=== PATIENT | male | born 1945 | race Caucasian/White ===

== ENCOUNTER 2022-04-07 10:26 | Outpatient (CLI) | payer MEDICARE, BC, SELFPAY ==
--- OUTSIDE RECORDS SUMMARY | 2022-04-07 10:29 | XMS_ITS | Clinical Summary ---
:1945 Author Organization [facility] [place] [address] Care Team Providers Name Role Phone Pcp, No Primary Care Provider Unavailable Allergies Active Allergy Reactions Severity Noted Date Comments Gluten Intolerance-Can't Take Low 05/11/2011 Tegaserod Rash, Nausea And Vomiting, Headache 02/06 Medications Medication Sig Dispensed Refills Start Date End Date Status LUMIGAN 0.01 % INSTILL 1 DROP INTO 0 04/19/2020 Active ophthalmic solution LEFT EYE AT BEDTIME DUREZOL 0.05 % 1 DROP IN SURGICAL 0 12/15/2019 Active ophthalmic emulsion EYE 4 TIMES A DAY STARTING 1 DAY BEFORE SURGERY, CONTINUE UNTIL INSTRUCTED tamsulosin (FLOMAX) Take 1 Capsule (0.4 90 Capsule 3 1 Active 0.4 mg mg) by mouth once capsuleIndications: daily after a meal. Benign prostatic hyperplasia with nocturia Active Problems Problem Noted Date Elevated PSA 11/03/2015 Benign non-nodular prostatic hyperplasia with lower ur inary tract symptoms 11/03/2015 Colon polyp 05/17/2011 Overview: Colonoscopy 05/2011 multiple polyps repea t in 2 years Colonoscopy 05/2013 polyp repeat in 2 yea rs Colonoscopy 06/2015 polyps repeat in 2 ye ars Colonoscopy 09/2017 polyps, repeat in 2 y ears Colonoscopy 11/2019 polyps, repeat in 2 y ears Colonoscopy 02/2022 normal, repeat in 3 years Personal history of malignant neoplasm of rectum, rect osigmoid junction, 02/06/2007 and anus Overview: Colonoscopy 02/2009 polyps repeat in 2 y ears Colonoscopy 02/2022 normal, repeat in 3 years Encounters Date Type Specialty Care Team Description 02/07/2022 Procedure Only Kris Robbins MD P rocedure (colonoscopy) 02/07/2022 Travel 02/01/2022 Telephone Kris Robbins MD Elidia ointment Reminder 01/10/2022 Telephone Kris Robbins MD Oth er from Last 3 Months Immunizations Name Administration Dates Next Due Pneumococcal Poly,23-Valent (Pneumovax) 09/21/2011 Pneumococcal conj 13-Valent (Prevnar 13) 06/25/2014 Td (Age >=7 Years) 03/21/2003, 06/02/1999 Tdap 12/19/2017 Zoster (Shingrix-RZV, recombinant) 02/17/2019, 12/13/2018 Social History Tobacco Use Types Packs/Day Years Used Date Never Smoker 0 Smokeless Tobacco: Never Used Tobacco Cessation: Counseling Given: Yes Alcohol Use Standard Drinks/Week Comments Yes 0 (1 standard drink = 0.6 oz pure alcoho l) Alcoholic Drinks/day: 1 Sex Assigned at Date Recorded Not on file Obstetrics History Last Filed Vital Signs Vital Sign Reading Time Taken Comments Blood Pressure 152/82 08/29/2021 8:11 AM CDT Pulse 62 08/29/2021 8:11 AM CDT Temperature 36.7 ??C (98.1 ??F) 12/31/2017 9:21 AM CDT Respiratory Rate 16 08/29/2021 8:11 AM CDT Oxygen Saturation 100% 08/29/2021 8:11 AM CDT Inhaled Oxygen - - Concentration Weight 79.7 kg (175 lb 12.8 08/29/2021 8:11 AM PT weigh ed with shoes oz) CDT on. Height 167 cm (5' 5.75) 12/13/2015 8:43 AM CDT Body Mass Index 28.59 12/13/2015 8:43 AM CDT Plan of Treatment Health Maintenance Due Date Last Done Comments Depression screening for age 12+ 1957 Hepatitis C screening for age 18-79 1963 Medicare Wellness for age 65+ 2010 BMI (ht and wt on same day) for age 0812/12/2016 12/13/2015, 11/03/2015 18+ COVID-19 vaccine series (4 - Booster 05/03/2021 03/08/2021, 07/17/2020, for Pfizer series) 06/26/2020 Influenza for age 65+ 01/05/2022 Tetanus booster 12/20/2027 12/19/2017, 03/21/2003, 06/02/1999 Pneumococcal series for age 65+ Completed 06/25/2014, 09/04 Tdap Completed 12/19/2017 Zoster (shingles) series for age 50+ Completed 02/17/2019, 12/13/2018 Procedures Procedure Name Priority Date/Time Associated Comments Diagnosis COLONOSCOPY 02/07/2022 9:54 AM Results f or this CDT procedure are i n the results section. COLONOSCOPY SCREENING Routine 02/07/2022 9:40 AM History of co david CDT polyps from Last 3 Months Results COLONOSCOPY (02/07/2022 9:54 AM CDT) Specimen (Source) Anatomical Collection Method Collection Time Re ceived Time Location / / Volume Laterality 02/07/2022 9:54 AM CDT Narrative This result has an attachment that is no t available. Transcriptions Kris Robbins MD - 02/07/2022 10 :55 AM CDT Patient Name: Jet Ellisfreddy re Date: 02/07/2022 Gender: Male Date of : 1945 Admit Type: Outpatient Procedure: Colonoscopy Proceduralist: Kris Robbins MD , Angeline Mock RN (Nurse), Loly Zhou (Nurse) Referring MD: Kris Robbins Indications/Pre-Op Diagnosis: High risk colon cancer surveillance: Personal history of multiple (3 or more) adenoma s, High risk colon cancer surveillance: Bradley ernst history of colon cancer, Last colonosco py: November 2019 Medications: Fentanyl 100 micrograms IV, Midazolam 2 mg IV, The level of sedation administered was moderate Procedure Description: The patient had risks, benefits and alt ernatives explained to and gave informed consent. The patient had a sta ble cardiopulmonary status and judged an adequate candidate for consci ous sedation. The Colonoscope was passed through the anus and advanced to the cecum, identified by appendiceal orifice and i leocecal valve. The colonoscopy was performed without difficulty. The p atient tolerated the procedure well. The quality of the bowel preparat ion was good. The ileocecal valve, appendiceal orifice, and rectum were photographed. Complications: No immediate complication s. Estimated Blood Loss & Specimen: Estimated blood loss: none. Specimen co llected - None Findings: The perianal and digital rectal examina tions were normal. There was evidence of a prior end-to-en d colo-rectal anastomosis in the rectum. This was patent and was charact erized by healthy appearing mucosa. The entire examined colon appeared norm al. Impressions/Post-Op Diagnosis: - Patent end-to-end colo-rectal anastom osis, characterized by healthy appearing mucosa. - The entire examined colon is normal. - No specimens collected. Recommendation: - Patient has a contact number availabl e for emergencies. The signs and symptoms of potential delayed complicat ions were discussed with the patient. Return to normal activities to [place]. Written discharge instructions were provided to the patie nt. - Resume previous diet. - Continue present medications. - Repeat colonoscopy in 3 years for vivi veillance. Moderate Sedation: A time out was performed before the pro cedure. Moderate (conscious) sedation was administered by the endosc opy nurse and supervised by the endoscopist. The following parameters w ere monitored: oxygen saturation, heart rate, blood pressure, EKG, CO2, r espiratory rate, adequacy of pulmonary ventilation and reponse to ca re. Please refer to the patient's medical r ecord flowsheets and nursing notes for moderate sedation details. Total physician intraservice time was 2 2 minutes. Kris Robbins MD 02/07/2022 10:55:23 AM This report has been signed electronical ly. Note Initiated On: 02/07/2022 9:54 AM Procedure Code(s): --- Professional --- 15302, Colonoscopy, flexible; diagnosti c, including collection of specimen(s) by brushing or washing, when performed (separate pr ocedure) Diagnosis Code(s): --- Professional --- Z86.010, Personal history of colonic po lyps Z85.038, Personal history of other junito gnant neoplasm of large intestine Z98.0, Intestinal bypass and anastomosi s status CPT copyright 2020 [employer]. All rights reserved. The codes documented in this report are preliminary and upon workers compensation defense attorney review may be revised to meet current compliance re quirements. Scope In: 10:31:25 AM Scope Withdrawal Time 0 hours 10 minutes 4 seconds Scope Out: 10:50:06 AM Kris Robbins MD PROCEDURE ORD from Last 3 Months Insurance Payer Benefit Plan / Subscriber ID Effective Dates Phone Addre ss Type Group MEDICARE PART B MEDICARE PART B [id number] 2010-Prese ATTN: CLAIMS - HB USE ONLY HB ONLY nt [id number] MEDICARE - PB MEDICARE PB [id number] 2010-Prese ATTN : CLAIMS USE ONLY ONLY nt [address] [place] [address] BLUE CROSS BLUE CROSS OF [id number] 2016-Presen [address] [place] [address] [address] [place] [address] Care Teams Zipper Cutter Relationship Specialty Start Date End Date Pcp, No PCP - General 11/12/19 .
[2022-04-07 13:13] LABS: SARS PCR* Negative SARS-CoV-2 (Negative)
== END 2022-04-07 10:27 | disposition home or self-care (01) ==
LOC: LONREF 10:27
PROVIDERS: PCP Family Medicine; Visit Provider Family Medicine
DX: Z20.822 Contact with and (suspected) exposure to COVID-19 (principal); R05.9 Cough, unspecified
CPT/HCPCS: 87635

== ENCOUNTER 2022-07-13 10:28 | Outpatient (CLI) | payer MEDICARE, BC, SELFPAY | END 2022-07-13 10:29 | disposition home or self-care (01) | LOC: LONREF 10:29 | PROVIDERS: PCP Family Medicine; Visit Provider Nurse Practitioner Family | DX: L29.9 Pruritus, unspecified (principal); R42 Dizziness and giddiness | CPT/HCPCS: 80053 ==

== ENCOUNTER 2022-11-08 11:18 | Outpatient (CLI) | payer MEDICARE, BC, SELFPAY | END 2022-11-08 11:19 | disposition home or self-care (01) | PROVIDERS: PCP Family Medicine; Visit Provider Family Medicine | DX: R53.83 Other fatigue (principal); N40.0 Benign prostatic hyperplasia without lower urinary tract symptoms; Z13.21 Encounter for screening for nutritional disorder; Z13.29 Encounter for screening for other suspected endocrine disorder | CPT/HCPCS: 82607; 84443 ==

== ENCOUNTER 2024-02-06 09:54 | Outpatient (CLI) | payer MEDICARE, BC, SELFPAY ==
--- OUTSIDE RECORDS SUMMARY | 2024-02-06 10:07 | XMS_ITS | Clinical Summary ---
Author Organization [facility] Address [place], [place] [address] Care Team Providers Care Lead Infrastructure Architect Name Role Phone Pcp, No Primary Care Provider Unavailabl e Allergies Active Allergy Reactions Criticality Noted Date Comments Gluten Intolerance-Can't Take Low 05/11/2011 Tegaserod Rash,Nausea And Vomiting,Headache Medications Medication Sig Dispensed Refills Start Date End Date Status LUMIGAN 0.01 % ophthalmic solution INSTILL 1 DROP INTO LEFT EYE AT BEDTIME 04/19/2020 Active DUREZOL 0.05 % ophthalmic emulsion 1 DROP IN SURGICAL EYE 4 TIMES A DAY STARTING 1 DAY BEFORE SURGERY, CONTINUE UNTIL INSTRUCTED 12/15/2019 Active tamsulosin (FLOMAX) 0.4 mg capsuleIndications: Benign prostatic hyperplasia with nocturia Take 1 Capsule (0.4 mg) by mouth once daily after a meal. 90 Capsule 3 02/14/2021 Active Active Problems Problem Noted Date Diagnosed Date Elevated PSA 11/03/2015 Benign non-nodular prostatic hyperplasia with lower urinary tract symptoms 11/03/2015 Colon polyp 05/17/2011 Overview (02/07/2022): Colonoscopy 05/2011 multiple polyps repeat in 2 years Colonoscopy 05/2013 polyp repeat in 2 years Colonoscopy 06/2015 polyps repeat in 2 years Colonoscopy 09/2017 polyps, repeat in 2 years Colonoscopy 11/2019 polyps, repeat in 2 years Colonoscopy 02/2022 normal, repeat in 3 years Personal history of malignan t neoplasm of rectum, rectosigmoid junction, and anus 02/06/2007 Overview (02/07/2022): Colonoscopy 02/2009 polyps repeat in 2 years Colonoscopy 02/2022 normal, repeat in 3 years Immunizations Name Administration Dates Next Due Pneumococcal Poly,23-Valent (Pneumovax) 09/21/19 12 Pneumococcal conj 13-Valent (Prevnar 13) 015 Td (Age >=7 Years) 03/21/2003,06/02/1999 Tdap 12/19/2017 Zoster (Shingrix-RZV, recombinant) 02/17/2019, Social History Tobacco Use Types Packs/Day Years Used Date Smoking Tobacco: Never Smokeless Tobacco: Never Tobacco Cessation:Counseling Given: Yes Alcohol Use Standard Drinks/Week Comments Yes 0 (1 standard drink = 0.6 oz pur e alcohol) Alcoholic Drinks/day: 1 Sex and Gender Information Value Date Recorded Sex Assigned at Not on file Gender Identity Not on file Sexual Orientation Not on file Obstetrics History Last Filed Vital Signs Vital Sign Reading Time Taken Comments Blood Pressure 152/82 08/29/2021 8:11 AM CDT Pulse 62 08/29/2021 8:11 AM CDT Temperature 36.7 ??C (98.1 ??F) 12/31/2017 9 :21 AM CDT Respiratory Rate 16 08/29/2021 8:11 AM CDT Oxygen Saturation 100% 08/29/2021 8:1 1 AM CDT Inhaled Oxygen Concentration - - Weight 79.7 kg (175 lb 12.8 oz) 08/29/2021 8:11 AM CDT PT weighed with shoes on. Height 167 cm (5' 5.75) 12/13/2015 8:4 3 AM CDT Body Mass Index 28.59 12/13/2015 8:43 AM CDT Plan of Treatment Health Maintenance Due Date Last Done Comments Depression screening for age 12+ 1957 Hepatitis C screening for ag e 18-79 1963 Medicare Wellness for age 65+ 2010 BMI (ht and wt on same day) for age 18+ 12/12/2016 12/13/2015, 11/03/2015 RSV vaccine for adults or (1 - 1-dose 75+ series) 2020 COVID-19 vaccine series ( season) 2024 11/15/2021, 03/08/2021, 07/17/2020, Additional history exists Influenza for age 65+ 01/06/2024 Tetanus booster 12/20/2027 12/19/2017, 03/07, 06/02/1999 Pneumococcal series for age 65+ Completed 5, 09/21/2011 Tdap Completed 12/19/2017 Zoster (shingles) series for age 50+ Completed 02/17/2019, 12/13/2018 Care Teams Lead Infrastructure Architect Relationship Specialty Start Date End Date Pcp, No . PCP - General 11/12/19
== END 2024-02-06 09:55 | disposition home or self-care (01) ==
LOC: LKVREF 09:57
PROVIDERS: PCP Family Medicine; Visit Provider Family Medicine
DX: C18.9 Malignant neoplasm of colon, unspecified (principal); Z13.1 Encounter for screening for diabetes mellitus
CPT/HCPCS: 80048

== ENCOUNTER 2025-02-17 09:14 | Outpatient (CLI) | payer MEDICARE, BC, SELFPAY | END 2025-02-17 09:15 | disposition home or self-care (01) | PROVIDERS: PCP Family Medicine; Visit Provider Family Medicine | DX: E78.5 Hyperlipidemia, unspecified (principal); C18.9 Malignant neoplasm of colon, unspecified; Z13.6 Encounter for screening for cardiovascular disorders | CPT/HCPCS: 80053; 80061 ==